=== PATIENT | male | born 1935 | race Caucasian/White ===

== ENCOUNTER 2018-04-19 14:45 | Observation (INO) | payer OTHER ==
[2018-04-19 15:08] VITALS: BMI 31.4
--- NOTE | 2018-04-19 15:09 | C.PDOC ---
History Of Present Illness 83yo male with history of diabetes, hypertension, comes to ER from home complaining of left sided facial droop, drooling and slurred speech since 5 pm yesterday. Patient states he lives by himself. He denies any fever or chills and has no other complaints. Time Seen by Provider: 04/19/18 15:06 Chief Complaint (Nursing): Weakness/Neurological Deficit History Per: Patient History/Exam Limitations: no limitations Onset/Duration Of Symptoms: Hrs Current Symptoms Are (Timing): Still Present - Symptoms Of CVA Associated Symptoms: Impaired Speech Past Medical History Reviewed: Historical Data, Nursing Documentation, Vital Signs Vital Signs: Last Vital Signs Temp 98.6 F 04/19/18 14:56 Pulse 92 H 04/19/18 14:56 Resp 20 04/19/18 14:56 BP 150/76 04/19/18 14:56 Pulse Ox 98 04/19/18 14:56 - Medical History PMH: HTN Surgical History: No Surg Hx Family History: States: No Known Family Hx - Social History Hx Alcohol Use: No Hx Substance Use: No - Immunization History Hx Tetanus Toxoid Vaccination: No Hx Influenza Vaccination: Yes (2018) Hx Pneumococcal Vaccination: No Review Of Systems Except As Marked, All Systems Reviewed And Found Negative. Constitutional: Negative for: Fever, Chills Cardiovascular: Negative for: Chest Pain Gastrointestinal: Negative for: Vomiting Neurological: Positive for: Other (slurred speech; drooling; left facial droop). Negative for: Weakness, Numbness Physical Exam - Physical Exam Appears: Non-toxic Skin: Normal Color, Dry Head: Atraumatic, Normacephalic Eye(s): bilateral: Normal Inspection Oral Mucosa: Moist Cardiovascular: Rhythm Regular Respiratory: Normal Breath Sounds Gastrointestinal/Abdominal: Normal Exam, Soft Back: Normal Inspection Extremity: Normal ROM, No Deformity Neurological/Psych: Oriented x3, Normal Speech, Normal Cognition, Normal Motor, Normal Sensation Other Neurological Findings: Facial Palsy, Forehead Sparing, No Tongue Deviation ED Course And Treatment - Laboratory Results Result Diagrams: 04/19/18 15:19 04/19/18 15:19 O2 Sat by Pulse Oximetry: 98 (RA) Pulse Ox Interpretation: Normal NIHSS Stroke Scale 2 - Date/Time Evaluation Performed Date Performed: 04/19/18 - How Severe is the Stroke Level of Consciousness: 0=Alert LOC to Questions: 0=Both comments correct LOC to commands: 0=Obeys both correctly Best Gaze: 0=Normal Facial: 2=Partial (lower face paralysis) Motor Arm - Left: 1=Drift noted before 10 sec Motor Arm - Right: 0=No drift Motor Leg - Left: 0=No drift Motor Leg - Right: 0=No drift Limb Ataxia: 0=Absent Sensory: 0=Normal Best Language: 0=No aphasia Dysarthia: 1=Mild to moderate slurring Extinction & Inattention (Neglect): 0=Normal, no object rTPA Inclusion/Exclusion - Inclusion Criteria for Altepase Patient is 18 years or Older: Yes The Clinical Diagnosis of Ischemic Stroke That is Causing a Potentially Disabling Neurological Deficit: No Time of Onset is Well Established to be Less Than 270 Minute Before Treatment Would Begin: No Risk/Benefit Discussed With Patient/Family Member Present: No Medical Decision Making Medical Decision Makinyo male with left sided facial droop, drooling and slurred speech since 5 pm yesterday. pt does appear to have facial sparing, ?bells vs cva Plan: -- Labs -- CT Head w/o contrast -- CXR -- IV Fluids -- Swallow screen [address] Baez, neurologist elevator conductor, recommends ASA 81mg PO. will admit for mri. bells vs cva. not tpa candidate 24 hours Disposition - Disposition Disposition: HOSPITALIZED Disposition Time: 15:00 Condition: STABLE - Clinical Impression Clinical Impression: Facial droop - Scribe Statement The provider has reviewed the documentation as recorded by the Leticia Collier Provider Attestation: All medical record entries made by the Leticia were at my direction and personally dictated by me. I have reviewed the chart and agree that the record accurately reflects my personal performance of the history, physical exam, medical decision making, and the department course for this patient. I have also personally directed, reviewed, and agree with the discharge instructions and disposition. Decision To Admit - Pt Status Changed To: Hospital Disposition Of: Observation - InPatient: Physician Admission Certification: I certify that this patient requires 2 or more midnights of care for the following reason:: ro cva - . Bed Request Type: Telemetry Admitting Physician: Marisa Bedoya Patient Diagnosis: Facial droop
--- NOTE | 2018-04-19 15:23 | CP.PCM.CON ---
<Ashwin Redd - Last Filed: 04/19/18 16:18> History of Present Illness - History of Present Illness History of Present Illness: PGY-1 Code Stroke Neurology Progress Note for Dr. Baez Patient is an 83 year old male with PMHx HTN, hyperlipidemia who presents with left-sided facial weakness that began yesterday. He states that he noticed that when he goes to drink water, water would spill out of the side of his mouth, and has also had new slurred speech. Patient states symptoms began to worsen today, prompting patient to come to ED. Patient states Patient denies weakness of any of the extremities, denies any sensory changes, denies vision changes, dizziness, confusion. Patient denies history of cardiovascular disease, prior CVA, atrial fibrillation, or any other cardiac conditions. He does see Field Staff Dr. Elise as an outpatient, but states only for medicaid requirements and maintains no history of cardiac disease. Patient states his hypertension is controlled with medications. PMHx: PMHx HTN, hyperlipidemia (possible DM - takes a "sugar pill", but denies being diabetic) PSHx: Left knee surgery x3 Allergies: NKA Social: Never smoker, denies alcohol or drug use. Retired, lives alone in apartment in . Medications: Takes meds for HTN, hyperlipidemia, and a "sugar pill" Family hx: No known family history of cardiovascular disease, no known family history overall PMD: Dr. Steward Field Staff: Dr. Elise Review of Systems - Constitutional Constitutional: absent: Chills, Fatigue, Fever - EENT Eyes: absent: Blurred Vision, Change in Vision, Diplopia, Loss of Vision Ears: absent: Abnormal Hearing, Dizziness Nose/Mouth/Throat: absent: Nasal Congestion, Nasal Discharge - Cardiovascular Cardiovascular: absent: Chest Pain, Diaphoresis, Dyspnea, Palpitations - Respiratory Respiratory: absent: Cough, Dyspnea, Wheezing - Gastrointestinal Gastrointestinal: absent: Abdominal Pain, Diarrhea, Nausea, Vomiting - Genitourinary Genitourinary: absent: Dysuria, Flank Pain - Musculoskeletal Musculoskeletal: absent: Stiffness, Tingling Additional comments: L knee pain 2/2 chronic knee issues related to past trauma - Neurological Neurological: Abnormal Speech (slurred speach), Focal Weakness (left-sided facial weakness and facial droop). absent: Abnormal Hearing, Confusion, Dizziness, Numbness, Paresthesias, Radicular Pain, Sensory Deficit, Tingling, Tremor, Weakness - Psychiatric Psychiatric: absent: Anxiety, Depression Past Patient History - Past Social History Smoking Status: Never Smoked - CARDIAC Hx Hypertension: Yes - PSYCHIATRIC Hx Substance Use: No - SURGICAL HISTORY Hx Cataract Extraction: Yes (Both eyes) Hx Orthopedic Surgery: Yes (Alireza Knees) - ANESTHESIA Hx Anesthesia: Yes Hx Anesthesia Reactions: No Meds Allergies/Adverse Reactions: Allergies Allergy/AdvReac Type Severity Reaction Status Date / Time No Known Allergies Allergy Verified 04/19/18 15:00 - Medications Medications: Current Medications Sodium Chloride (Sodium Chloride 0.9%) 1,000 mls @ 100 mls/hr IV .Q10H [facility] Physical Exam - Constitutional Appears: Non-toxic, No Acute Distress - Head Exam Head Exam: ATRAUMATIC, NORMOCEPHALIC - Eye Exam Eye Exam: EOMI - ENT Exam ENT Exam: Mucous Membranes Moist - Respiratory Exam Respiratory Exam: Clear to Auscultation Bilateral, NORMAL BREATHING PATTERN. absent: Rhonchi, Wheezes - Cardiovascular Exam Cardiovascular Exam: REGULAR RHYTHM, +S1, +S2 - GI/Abdominal Exam GI & Abdominal Exam: Normal Bowel Sounds, Soft. absent: Tenderness - Extremities Exam Extremities exam: Positive for: normal inspection. Negative for: pedal edema, tenderness - Neurological Exam Neurological exam: Alert, Oriented x3, Reflexes Normal Additional comments: Left facial droop and weakness on exam. Slurred speech. 5/5 motor strength uppers and lowers b/l. Sensation intact throughout. No pronator drift. No dysmetria. Normal babinsky. - Psychiatric Exam Psychiatric exam: Normal Affect, Normal Mood - Skin Skin Exam: Dry, Intact Results - Vital Signs Recent Vital Signs: Last Vital Signs Temp 98.6 F 04/19/18 14:56 Pulse 92 H 04/19/18 14:56 Resp 20 04/19/18 14:56 BP 150/76 04/19/18 14:56 Pulse Ox 98 04/19/18 15:18 - Labs Result Diagrams: 04/19/18 15:19 04/19/18 15:19 Labs: Laboratory Results - last 24 hr 04/19/18 14:55 POC Glucose (mg/dL) 151 H Assessment & Plan - Assessment and Plan (Free Text) Assessment: 83 year old male with PMHx HTN, hyperlipidemia presents with left facial droop/weakness and slurred speech beginning one day ago. CT of the head showed no acute pathology. Severance palsy vs CVA. Plan: Code stroke called for left-sided facial droop -NIHSS 2 points for facial paralysis -CT head 04/19 - Normal CT of the head -Will obtain MRI of the brain. If MRI negative, will treat for dudley's palsy with prednisone/valtrex. Assessment and plan discussed with Dr. Sasha Redd, PGY-1 <Clay Baez - Last Filed: 04/20/18 19:29> Meds - Medications Medications: Current Medications Artificial Tears (Artificial Tears) 1 ml OS QID [facility] Last Admin: 04/20/18 17:52 Dose: 1 drop Aspirin (Aspirin) 325 mg PO DAILY [facility] Last Admin: 04/20/18 10:56 Dose: Not Given Enoxaparin Sodium (Lovenox) 40 mg SC DAILY [facility] Last Admin: 04/20/18 11:01 Dose: 40 mg Sodium Chloride (Sodium Chloride 0.9%) 1,000 mls @ 75 mls/hr IV .[id number] [facility] Last Admin: 04/20/18 11:36 Dose: 75 mls/hr Losartan Potassium (Cozaar) 50 mg PO DAILY [facility] Last Admin: 04/20/18 10:56 Dose: Not Given Pantoprazole Sodium (Protonix Ec Tab) 40 mg PO DAILY [facility] Last Admin: 04/20/18 10:57 Dose: Not Given Prednisone (Prednisone Tab) 60 mg PO DAILY [facility] Stop: 04/25/18 17:46 Last Admin: 04/20/18 17:51 Dose: 60 mg Rosuvastatin Calcium (Crestor) 10 mg PO HS [facility] Last Admin: 04/19/18 21:26 Dose: 10 mg Valacyclovir HCl (Valtrex) 1,000 mg PO Q12 [facility]; Protocol Stop: 04/30/18 22:01 Results - Vital Signs Recent Vital Signs: Last Vital Signs Temp 98.3 F 04/20/18 15:35 Pulse 70 04/20/18 15:35 Resp 18 04/20/18 15:35 BP 130/73 04/20/18 15:35 Pulse Ox 97 04/20/18 15:35 - Labs Result Diagrams: 04/19/18 15:19 04/19/18 15:19 Labs: Laboratory Results - last 24 hr 04/19/18 04/20/18 04/20/18 20:54 06:34 16:18 POC Glucose (mg/dL) 133 H 129 H 159 H Attending/Attestation - Attestation I have personally seen and examined this patient.: Yes I have fully participated in the care of the patient.: Yes I have reviewed all pertinent clinical information: Yes Notes (Text): I agree with the assessment and plan. 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 MRI will rule out a stroke and we will start treatment with prednisone and valacyclovir. Thank you for this consultation.
[2018-04-19 15:24] LABS: BASO % 0.2 % (0.0-2.0); EOS # 0.2 K/uL (0.0-0.7); EOS % 2.8 % (0.0-4.0); HEMOGLOBIN 13.8 g/dL (12.0-18.0); LYMPH # 2.8 K/uL (1.0-4.3); LYMPH % 35.5 % (20.0-40.0); MEAN CELL VOLUME 87.6 fL (80.0-94.0); MEAN CORPUSCULAR HEMOGLOBIN 29.1 pg (27.0-31.0); MEAN CORPUSCULAR HGB CONC 33.2 g/dL (33.0-37.0); MEAN PLATELET VOLUME 8.7 fL (7.2-11.7); MONO # 0.6 K/uL (0.0-0.8); MONO % 7.1 % (0.0-10.0); NEUT # 4.3 K/uL (1.8-7.0); NEUT % 54.4 % (50.0-75.0); NRBC % 0.1 % (0.0-2.0); RBC 4.73 Mil/uL (4.40-5.90); RED CELL DISTRIBUTION WIDTH 13.2 % (11.5-14.5)
[2018-04-19] MEDS ORDERED: Sodium Chloride 0.9% 1,000 ML ONE (15:24)
[2018-04-19] MEDS: Sodium Chloride 0.9% 1,000 ML IV SCH (15:30)
[2018-04-19 15:32] LABS: INR 1.1; PROTHROMBIN TIME 11.7 SECONDS (9.7-12.2)
--- NOTE | 2018-04-19 15:35 | CT ---
Date of service: 04/19/2018 PROCEDURE: CT HEAD WITHOUT CONTRAST. HISTORY: Code Stroke COMPARISON: None available. TECHNIQUE: Axial computed tomography images were obtained through the head/brain without intravenous contrast. Radiation dose: Total exam DLP = 1083.2 mGy-cm. This CT exam was performed using one or more of the following dose reduction techniques: Automated exposure control, adjustment of the mA and/or kV according to patient size, and/or use of iterative reconstruction technique. FINDINGS: HEMORRHAGE: No intracranial hemorrhage. BRAIN: No mass effect or edema. No atrophy or chronic microvascular ischemic changes. VENTRICLES: Unremarkable. No hydrocephalus. CALVARIUM: Unremarkable. PARANASAL SINUSES: Unremarkable as visualized. No significant inflammatory changes. MASTOID AIR CELLS: Unremarkable as visualized. No inflammatory changes. OTHER FINDINGS: None. IMPRESSION: Normal CT of the Head.
[2018-04-19 15:45] LABS: ALB/GLOB RATIO 1.3 (1.0-2.1); ALT/SGPT 33 U/L (21-72); AST/SGOT 32 U/L (17-59); BLOOD UREA NITROGEN 20 mg/dL (9-20); CALCIUM 8.7 mg/dl (8.6-10.4); GFR NON-AFRICAN AMERICAN > 60; HDL CHOLESTEROL 48 mg/dL (30-70)
[2018-04-19 15:56] LABS: LDL CHOLESTEROL 94 mg/dL (0-129)
--- NOTE | 2018-04-19 16:04 | RAD ---
HISTORY: Code Stroke COMPARISON: None available. TECHNIQUE: Chest, one view. FINDINGS: Examination limited by habitus. LUNGS: Right basilar atelectasis/infiltrate. Please note that chest x-ray has limited sensitivity for the detection of pulmonary masses. PLEURA: No significant pleural effusion identified. No definite pneumothorax . CARDIOVASCULAR: Cardiomegaly. No significant atherosclerotic calcification present. OSSEOUS STRUCTURES: Degenerative changes. VISUALIZED UPPER ABDOMEN: Unremarkable. OTHER FINDINGS: None. IMPRESSION: Right basilar atelectasis/infiltrate. Cardiomegaly.
[2018-04-20] MEDS: Sodium Chloride 0.9% 1,000 ML IV SCH ×2 (04:19→11:36)
--- NOTE | 2018-04-20 09:28 | MRI ---
Date of service: 04/19/2018 PROCEDURE: MRI BRAIN WITHOUT CONTRAST HISTORY: Code stroke, rule out CVA COMPARISON: Comparison is made with the previous CT of the head dated 04/19/2018 TECHNIQUE: Multiplanar, multisequence MR images of the brain were obtained without intravenous contrast enhancement. FINDINGS: HEMORRHAGE: None DWI: No evidence of an acute or early subacute infarction. BRAIN PARENCHYMA: No mass effect or edema. Moderate generalized volume loss noted. Bilateral periventricular and subcortical white matter changes likely represent chronic ischemic microvascular disease. Again noted is midline extra-axial cystic structure in the posterior fossa likely represent arachnoid cyst or wm cisterna magnum. VENTRICLES: Unremarkable. No hydrocephalus. CRANIUM: Unremarkable. ORBITS: Grossly unremarkable. PARANASAL SINUSES/MASTOIDS: Mild ethmoid sinuses mucosal thickening noted. VASCULAR SYSTEM: Skull base flow voids intact. OTHER FINDINGS: None. IMPRESSION: No evidence of acute intracranial hemorrhage or acute infarct. Generalize moderate atrophy and mild chronic microvascular ischemic changes. Preliminary report was submitted by [facility] contains concordant findings.
[2018-04-20] MEDS: Pantoprazole 40 mg EC Tab PO SCH (10:57)
[2018-04-20] MEDS: Enoxaparin 40 mg Syringe SC SCH (11:01)
[2018-04-20] MEDS ORDERED: Nitroglycerin 2% Ointment Foilpak UD TOP STA (11:11)
--- NOTE | 2018-04-20 17:37 | PCM.STROKE ---
Interval History - Education Written Stroke Education provided regarding: personal risk factors, stroke warning sign/symptoms, how to activate emergency medical services, need to follow up after discharge NIHSS Stroke Scale - Date/Time Evaluation Performed Date Performed: 04/19/18 - How Severe is the Stroke Level of Consciousness: 0=Alert LOC to Questions: 0=Both comments correct LOC to commands: 0=Obeys both correctly Best Gaze: 0=Normal Facial: 2=Partial (lower face paralysis) Motor Arm - Left: 1=Drift noted before 10 sec Motor Arm - Right: 0=No drift Motor Leg - Left: 0=No drift Motor Leg - Right: 0=No drift Limb Ataxia: 0=Absent Sensory: 0=Normal Best Language: 0=No aphasia Dysarthia: 1=Mild to moderate slurring Extinction & Inattention (Neglect): 0=Normal, no object Exam - Vital Sign Vital Signs: Temp Pulse Resp BP Pulse Ox 98.3 F 70 18 130/73 97 04/20/18 15:35 04/20/18 15:35 04/20/18 15:35 04/20/18 15:35 04/20/18 15:35 - Data reviewed Laboratory results: 04/19/18 15:19 04/19/18 15:19 Triglycerides 225 mg/dL (0-149) H 04/19/18 15:19 Cholesterol 163 mg/dL (0-199) 04/19/18 15:19 LDL Cholesterol Direct 94 mg/dL (0-129) 04/19/18 15:19 HDL Cholesterol 48 mg/dL (30-70) 04/19/18 15:19 Hemoglobin A1c 7.5 % (4.2-6.5) H 04/19/18 15:19 Assessment and Plan (1) Facial droop Assessment & Plan: Imaging reviewed: -Brain MRI (04/19/18): No evidence of acute intracranial hemorrhage or acute infarct. Generalize moderate atrophy and mild chronic microvascular ischemic changes. 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 -If pt is d/c over the weekend, please provide Rx for the above medications. -Pt can f/u with Dr. Baez in the office within 1 month. Case discussed with Dr. Baez Status: Acute
[2018-04-20] MEDS: Aritificial Tears (15ml) OS SCH ×2 (17:52→21:15)
--- NOTE | 2018-04-20 19:11 | CARD ---
APPROVED REPORT Date of service: 04/19/2018 EKG Measurement Heart [id number] <Conclusion> Normal sinus rhythm Possible Left atrial enlargement Left axis deviation Right bundle branch block Abnormal ECG
--- NOTE | 2018-04-20 19:33 | CP.PCM.HP ---
Past Patient History - Past Social History Smoking Status: Never Smoked - CARDIAC Hx Hypertension: Yes - PSYCHIATRIC Hx Substance Use: No - SURGICAL HISTORY Hx Cataract Extraction: Yes (Both eyes) Hx Orthopedic Surgery: Yes (Alireza Knees) - ANESTHESIA Hx Anesthesia: Yes Hx Anesthesia Reactions: No Meds Allergies/Adverse Reactions: Allergies Allergy/AdvReac Type Severity Reaction Status Date / Time No Known Allergies Allergy Verified 04/19/18 15:00 Physical Exam - Constitutional Appears: Well - Head Exam Head Exam: ATRAUMATIC, NORMAL INSPECTION, NORMOCEPHALIC - Eye Exam Eye Exam: EOMI, Normal appearance, PERRL Pupil Exam: NORMAL ACCOMODATION, PERRL - ENT Exam ENT Exam: Mucous Membranes Moist, Normal Exam - Neck Exam Neck exam: Positive for: Normal Inspection - Respiratory Exam Respiratory Exam: Decreased Breath Sounds - Cardiovascular Exam Cardiovascular Exam: REGULAR RHYTHM, +S1, +S2 - GI/Abdominal Exam GI & Abdominal Exam: Diminished Bowel Sounds, Soft - Rectal Exam Rectal Exam: Deferred Results - Vital Signs Recent Vital Signs: Last Vital Signs Temp 98.3 F 04/20/18 15:35 Pulse 70 04/20/18 15:35 Resp 18 04/20/18 15:35 BP 130/73 04/20/18 15:35 Pulse Ox 97 04/20/18 15:35 - Labs Result Diagrams: 04/19/18 15:19 04/19/18 15:19 Labs: Laboratory Results - last 24 hr 04/19/18 04/20/18 04/20/18 20:54 06:34 16:18 POC Glucose (mg/dL) 133 H 129 H 159 H
--- NOTE | 2018-04-20 21:28 | CP.PCM.PN ---
Subjective - Date & Time of Evaluation Date of Evaluation: 04/20/18 Time of Evaluation: 17:35 - Subjective Subjective: Neuro Follow-Up Note: Mr. Humphrey was evaluated this afternoon at bedside. He admits to still feeling left sided facial numbness. His biggest complaint is having food and liquids fall out of his mouth during meals. He denies any new symptoms; no h/a, dizziness, visual changes, chest pain, palpitations, sob, cough, abd pain, n/v/d. Objective - Vital Signs/Intake and Output Vital Signs (last 24 hours): Temp Pulse Resp BP Pulse Ox 98.3 F 72 18 130/73 97 04/20/18 15:35 04/20/18 20:00 04/20/18 15:35 04/20/18 15:35 04/20/18 15:35 - Medications Medications: Current Medications Artificial Tears (Artificial Tears) 1 ml OS QID [facility] Last Admin: 04/20/18 21:15 Dose: 1 drop Aspirin (Aspirin) 325 mg PO DAILY [facility] Last Admin: 04/20/18 10:56 Dose: Not Given Enoxaparin Sodium (Lovenox) 40 mg SC DAILY [facility] Last Admin: 04/20/18 11:01 Dose: 40 mg Sodium Chloride (Sodium Chloride 0.9%) 1,000 mls @ 75 mls/hr IV .[id number] [facility] Last Admin: 04/20/18 11:36 Dose: 75 mls/hr Losartan Potassium (Cozaar) 50 mg PO DAILY [facility] Last Admin: 04/20/18 10:56 Dose: Not Given Pantoprazole Sodium (Protonix Ec Tab) 40 mg PO DAILY [facility] Last Admin: 04/20/18 10:57 Dose: Not Given Prednisone (Prednisone Tab) 60 mg PO DAILY [facility] Stop: 04/25/18 17:46 Last Admin: 04/20/18 17:51 Dose: 60 mg Rosuvastatin Calcium (Crestor) 10 mg PO HS [facility] Last Admin: 04/20/18 21:14 Dose: 10 mg Valacyclovir HCl (Valtrex) 1,000 mg PO Q12 [facility]; Protocol Stop: 04/30/18 22:01 Last Admin: 04/20/18 21:14 Dose: 1,000 mg - Labs Labs: 04/19/18 15:19 04/19/18 15:19 PT 11.7 SECONDS (9.7-12.2) 04/19/18 15:19 INR 1.1 04/19/18 15:19 APTT 34 SECONDS (21-34) 04/19/18 15:19 - Constitutional Appears: Well, Non-toxic, No Acute Distress - Head Exam Head Exam: ATRAUMATIC, NORMAL INSPECTION, NORMOCEPHALIC - Eye Exam Eye Exam: EOMI, Normal appearance Pupil Exam: NORMAL ACCOMODATION, PERRL - ENT Exam ENT Exam: Mucous Membranes Moist - Neck Exam Neck Exam: Full ROM, Normal Inspection - Respiratory Exam Respiratory Exam: NORMAL BREATHING PATTERN - Extremities Exam Extremities Exam: Full ROM - Back Exam Back Exam: Full ROM - Neurological Exam Neurological Exam: Alert, Awake, Oriented x3, Reflexes Normal Neuro motor strength exam: Left Upper Extremity: 5, Right Upper Extremity: 5, Left Lower Extremity: 5, Right Lower Extremity: 5 Additional comments: AAOx3; follows all commands; answers all questions appropriately. Speech slightly slurred + left facial droop noted, including asymmetry (the left side) of forehead. Moves all extremities normally No sensory deficits, including the face b/l No tremors - Psychiatric Exam Psychiatric exam: Normal Affect, Normal Mood - Skin Skin Exam: Normal Color Assessment and Plan (1) Saab palsy Assessment & Plan: Imaging reviewed: -Brain MRI (04/19/18): No evidence of acute intracranial hemorrhage or acute infarct. Generalize moderate atrophy and mild chronic microvascular ischemic changes. -CT Head (04/18/18): normal. -Mr. Humphrey'ashley facial droop is likely 2/2 to facial nerve palsy/Saab's Palsy. Acute/subacute CVA was ruled out by the above noted imaging. -Start on Prednisone 60 mg PO Daily x5 days (start today and last dose to be given on 04/25/18) and Valtrex 1,000 mg PO Q12 hours x10 days (start tonight and last dose to be given on 04/30/18). -Pt may be d/c; please provide Rx for the above medications. Also provide him with Rx for artificial tear eye drops to use to to left eye at least QID. -Pt can f/u with Dr. Baez in the office within 1 month. Thank you for allowing us to participate in this pt's care. Reconsult prn. Case discussed with Dr. Baez Status: Acute
[2018-04-21] MEDS: Sodium Chloride 0.9% 1,000 ML IV SCH (01:26)
[2018-04-21 03:04] VITALS: RESP 20
[2018-04-21 07:55] VITALS: PULSE 51
[2018-04-21 08:11] VITALS: BP 129/73; TEMP 98.5; O2SAT 99
[2018-04-21] MEDS: Enoxaparin 40 mg Syringe SC SCH (09:21)
[2018-04-21] MEDS: Pantoprazole 40 mg EC Tab PO SCH (09:21)
[2018-04-21] MEDS: Aritificial Tears (15ml) OS SCH ×2 (09:21→13:55)
--- NOTE | 2018-04-21 15:38 | CP.PCM.PN ---
Subjective - Date & Time of Evaluation Date of Evaluation: 04/21/18 Time of Evaluation: 09:30 - Subjective Subjective: clinically same Objective - Vital Signs/Intake and Output Vital Signs (last 24 hours): Temp Pulse Resp BP Pulse Ox 98.5 F 51 L 20 129/73 99 04/21/18 07:00 04/21/18 07:46 04/21/18 07:00 04/21/18 07:00 04/21/18 07:00 Intake and Output: 04/21/18 04/21/18 06:59 18:59 Intake Total 950 Balance 950 - Medications Medications: Current Medications Artificial Tears (Artificial Tears) 1 ml OS QID [facility] Last Admin: 04/21/18 13:55 Dose: Not Given Aspirin (Aspirin) 325 mg PO DAILY [facility] Last Admin: 04/21/18 09:20 Dose: 325 mg Enoxaparin Sodium (Lovenox) 40 mg SC DAILY [facility] Last Admin: 04/21/18 09:21 Dose: 40 mg Sodium Chloride (Sodium Chloride 0.9%) 1,000 mls @ 75 mls/hr IV .[id number] [facility] Last Admin: 04/21/18 01:26 Dose: 75 mls/hr Losartan Potassium (Cozaar) 50 mg PO DAILY [facility] Last Admin: 04/21/18 11:56 Dose: 50 mg Pantoprazole Sodium (Protonix Ec Tab) 40 mg PO DAILY [facility] Last Admin: 04/21/18 09:21 Dose: 40 mg Prednisone (Prednisone Tab) 60 mg PO DAILY [facility] Stop: 04/25/18 17:46 Last Admin: 04/21/18 09:20 Dose: 60 mg Rosuvastatin Calcium (Crestor) 10 mg PO HS [facility] Last Admin: 04/20/18 21:14 Dose: 10 mg Valacyclovir HCl (Valtrex) 1,000 mg PO Q12 [facility]; Protocol Stop: 04/30/18 22:01 Last Admin: 04/21/18 09:19 Dose: 1,000 mg - Labs Labs: 04/19/18 15:19 04/19/18 15:19 PT 11.7 SECONDS (9.7-12.2) 04/19/18 15:19 INR 1.1 04/19/18 15:19 APTT 34 SECONDS (21-34) 04/19/18 15:19 - Constitutional Appears: Well - Head Exam Head Exam: ATRAUMATIC, NORMAL INSPECTION, NORMOCEPHALIC - Eye Exam Eye Exam: EOMI, Normal appearance, PERRL Pupil Exam: NORMAL ACCOMODATION, PERRL - ENT Exam ENT Exam: Mucous Membranes Moist, Normal Exam - Neck Exam Neck Exam: Full ROM, Normal Inspection. absent: Lymphadenopathy - Respiratory Exam Respiratory Exam: Decreased Breath Sounds - Cardiovascular Exam Cardiovascular Exam: REGULAR RHYTHM, +S1, +S2 - GI/Abdominal Exam GI & Abdominal Exam: Soft, Diminished Bowel Sounds - Rectal Exam Rectal Exam: Deferred
== END 2018-04-21 15:47 | disposition home or self-care (01) ==
LOC: C.ER 14:45 → C.9E 15:51 → C.6T 18:28
PROVIDERS: ADMIT Internal Medicine Nephrology; ATTEND Internal Medicine Nephrology
DX: G51.0 Bell's palsy (principal); I10 Essential (primary) hypertension; E78.5 Hyperlipidemia, unspecified; Z79.899 Other long term (current) drug therapy
CPT/HCPCS: 70450; 70551; 71045; 80053; 80061; 82948; 83036; 84484; 85025; 85610; 85730; 86850; 86900; 92610; 93005; 97116; 97162; 97165; 97530; 99285; G0378; G8978; G8979; G8987; G8988; G8989; G8996; G8997; G8998; J1650; J7030